=== PATIENT | male | born 1935 | race Asian ===

== ENCOUNTER 2019-10-05 11:31 | Emergency (ER) | payer OTHER ==
[~2019-10-05] VITALS: Ht 177.8 cm; Wt 93.9 kg
--- NOTE | 2019-10-05 11:40 | NUR ---
[id number], facial pain, hematoma and abrasion s/p GLf. pt on coumadin. -ko. Patient a/ox4, breathing even and unlabored, verbally responsive. No distress noted.
[2019-10-05] MEDS ORDERED: TDAP [DIPH/PERTUSSIS/TET] 0.5 ML VIAL IM ONE ×2 (12:00→12:04)
--- NOTE | 2019-10-05 12:30 | NUR ---
PATIENT A/OX4, BREATHING EVEN AND UNLABORED, NO SOB NOTED, C/O MILD PAIN. CAME BACK FROM CT.
--- NOTE | 2019-10-05 13:00 | NUR ---
forehead/faced cleansed.
[2019-10-05 13:01] LABS: BASOPHILS % (AUTO) 0.2 % (0.0-2.0); EOSINOPHILS % (AUTO) 1.7 % (0.0-6.0); HEMATOCRIT 40 % (39-51); HEMOGLOBIN 13.2 g/dL (13.5-17.5); LYMPHOCYTES # (AUTO) 0.8 /CMM (0.8-4.8); LYMPHOCYTES % (AUTO) 10.6 % (20.0-44.0); MEAN CORPUSCULAR HGB CONC 33 g/dl (31.0-36.0); MEAN CORPUSCULAR VOLUME 91 fL (80-96); MONOCYTES # (AUTO) 0.6 /CMM (0.1-1.30); MONOCYTES % (AUTO) 7.4 % (2.0-12.0); NEUTROPHILS % (AUTO) 80.1 % (43.0-81.0); PLATELET COUNT (AUTO) 132 /CMM (150-450); RED BLOOD CELL COUNT(AUTO) 4.42 MIL/uL (4.5-6.0); WHITE BLOOD COUNT (AUTO) 7.5 K/uL (4.3-11.0)
[2019-10-05 13:09] LABS: CALCIUM, SERUM 9.1 mg/dL (8.5-10.1); CREATININE 1.2 mg/dL (0.6-1.3); POTASSIUM 4.6 mmol/L (3.5-5.1)
--- NOTE | 2019-10-05 13:51 | NUR ---
ICE COMPRESS TO FOREHEAD
--- NOTE | 2019-10-05 14:34 | NUR ---
CALLED SCAN/TRANSPORTATION, [facility]RANGED [facility] ETA 1425, CONFIRMATION #[id number]
--- NOTE | 2019-10-05 14:45 | NUR ---
Patient discharged to home in stable condition. Written and verbal after care instructions given. Patient verbalizes understanding of instruction.
[2019-10-05 15:20] VITALS: BP 149/86
== END 2019-10-05 15:21 | disposition home or self-care (01) ==
LOC: ER 11:34
DX: S00.83XA Contusion of other part of head, initial encounter (principal); W01.0XXA Fall on same level from slipping, tripping and stumbling without subsequent striking against object, initial encounter; Y93.89 Activity, other specified; Y92.89 Other specified places as the place of occurrence of the external cause; Y99.8 Other external cause status
CPT/HCPCS: 36415; 70450; 80048; 85025; 85730; 90471; 90715; 99284; A6403 ×2